=== PATIENT | female | born 1960 | race Asian ===

== ENCOUNTER 2018-09-24 05:09 | Emergency (ER) | payer SELFPAY ==
[~2018-09-24] VITALS: Ht 160 cm; Wt 71.7 kg
[2018-09-24 05:15] VITALS: BP 162/99; Ht 160 cm; Wt 71.7 kg
== END 2018-09-24 06:14 | disposition home or self-care (01) ==
LOC: ED 05:09
DX: N39.0 Urinary tract infection, site not specified (principal); I10 Essential (primary) hypertension